=== PATIENT | male | born 1955 | race African-American/Black ===

== ENCOUNTER 2020-11-29 06:00 | Day surgery (SDC) | payer MEDICAID, SELFPAY ==
[~2020-11-29] VITALS: Ht 182.9 cm; Wt 95.3 kg
[2020-11-29] MEDS ORDERED: SIMETHICONE 40 MG/0.6 ML ML ONE (07:09)
[2020-11-29] MEDS: MIDAZOLAM HCL 5 MG/5 ML VIAL ONE ×4 (08:01→08:26)
[2020-11-29] MEDS: fentaNYL CITRATE/PF 100 MCG/2 ML AMP ONE ×3 (08:01→08:26)
[2020-11-29] MEDS ORDERED: DIPHENHYDRAMINE INJ 50 MG/ML VIAL ONE (08:06)
[2020-11-29 10:38] VITALS: BP_SYST 154
== END 2020-11-29 10:38 | disposition home or self-care (01) ==
LOC: SDS 06:00 → SMU 06:00 → EDSEX 06:00 → SDS 10:38
PROVIDERS: ATTEND Internal Medicine
DX: Z12.11 Encounter for screening for malignant neoplasm of colon (principal); K62.1 Rectal polyp; K63.5 Polyp of colon; E11.9 Type 2 diabetes mellitus without complications; I50.9 Heart failure, unspecified; Z86.010 Personal history of colon polyps; Z79.899 Other long term (current) drug therapy; Z79.84 Long term (current) use of oral hypoglycemic drugs
CPT/HCPCS: 36415; 45380; 45385; 82962; 87426; 88305; G0378; J1200; J2250; J3010; J7030